=== PATIENT | male | born 1990 | race Caucasian/White ===

== ENCOUNTER 2017-07-17 23:10 | Emergency (ER) | payer OTHER ==
[2017-07-17 23:18] VITALS: BP 154/94
[2017-07-17] MEDS ORDERED: IBUPROFEN 800 MG TAB PO ONE (23:45)
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
== END 2017-07-17 23:52 | disposition home or self-care (01) ==
LOC: EEVIPCON 23:10
DX: S02.2XXA Fracture of nasal bones, initial encounter for closed fracture (principal); Y04.0XXA Assault by unarmed brawl or fight, initial encounter